=== PATIENT | male | born 1945 | race Caucasian/White ===

== ENCOUNTER 2024-01-02 15:19 | Emergency (ER) | payer OTHER ==
[~2024-01-02] VITALS: Ht 170.2 cm; Wt 72.6 kg
[2024-01-02 15:38] VITALS: BP_SYST 124; PULSE 69; RESP 16; TEMP 97.6; O2SAT 96
[2024-01-02 16:52] LABS: HEMATOCRIT 35.4 % (36-54); HEMOGLOBIN 11.4 g/dL (14.0-18.0); MEAN CORPUSCULAR HEMOGLOBIN 30 pg (27-31); MEAN CORPUSCULAR HGB CONC 32 % (32-36); MEAN CORPUSCULAR VOLUME 94 fL (79.0-98.0); PLATELET COUNT (AUTO) 133 K/uL (130-430); RED BLOOD CELL COUNT(AUTO) 3.75 MIL/uL (4.2-6.2); RED CELL DISTRIBUTION WIDTH 15.8 % (9.0-15.0)
[2024-01-02 16:55] LABS: INR 1.1 (0.80-1.20); PROTHROMBIN TIME 11.2 SECS (9.5-12.5)
[2024-01-02 16:57] LABS: ANION GAP 8 (5-15); CALCIUM 8.9 mg/dL (8.4-11.0); CARBON DIOXIDE 26 mmol/L (23-29); CHLORIDE 105 mmol/L (98-107); CREATININE 1.05 mg/dL (0.55-1.30); GLUCOSE 157 mg/dL (74-106); SODIUM SERUM 139 mmol/L (136-145); UREA NITROGEN, BLOOD 22 mg/dL (8-21)
[2024-01-02 17:10] LABS: ALANINE AMINOTRANSFERASE 8 U/L (12-78); ALBUMIN 3.2 g/dL (3.4-4.8); ASPARTATE AMINOTRANSFERASE 13 U/L (10-37); BILIRUBIN,DIRECT 0.1 mg/dL (0.0-0.3); CREATINE KINASE, TOTAL 24 U/L (39-308); SALICYLATE 2 mg/dL (3-30); TOTAL BILIRUBIN 0.3 mg/dL (0.0-1.0); TOTAL PROTEIN, SERUM 6.8 g/dL (6.4-8.3)
[2024-01-02 17:11] LABS: ACETAMINOPHEN < 1 ug/mL (1-30); ALCOHOL, BLOOD < 3 mg/dL (<10)
[2024-01-02 17:34] LABS: LYMPHOCYTES % (MANUAL) 94 % (20-46); MONOCYTES % (MANUAL) 2 % (0-11); PLATELET ESTIMATE ADEQUATE (ADEQUATE)
[2024-01-02] MEDS ORDERED: cefTRIAXone 1 GM VIAL ONE (17:34)
[2024-01-02 17:38] LABS: ACETONE, SERUM NEGATIVE (NEGATIVE)
[2024-01-02] MEDS: cefTRIAXone 1 GM in D5W 50 ML IV ONE (17:38)
[2024-01-02] MEDS ORDERED: DIVA500T PO (19:32)
[2024-01-02] MEDS ORDERED: MELA1TAB29 PO (19:32)
[2024-01-02] MEDS ORDERED: DICL100G60 TP (19:32)
[2024-01-02] MEDS ORDERED: BUSP5TAB3 PO (19:32)
[2024-01-02] MEDS ORDERED: MELA3TAB41 PO (19:32)
[2024-01-02] MEDS ORDERED: QUET25TA36 PO (19:32)
[2024-01-02] MEDS ORDERED: VITD2000 PO (19:32)
[2024-01-02] MEDS ORDERED: INSU100V7 (19:32)
[2024-01-02] MEDS ORDERED: ACAL100T (19:32)
[2024-01-02] MEDS ORDERED: SERT-131 PO (19:32)
[2024-01-02 19:56] LABS: BILIRUBIN,URINE NEGATIVE (NEGATIVE); CLARITY/URINE CLEAR (CLEAR); COLOR,URINE YELLOW (YELLOW); GLUCOSE,URINE NEGATIVE (NEGATIVE); KETONES,URINE NEGATIVE (NEGATIVE); LEUKOCYTE ESTERASE ,URINE NEGATIVE (NEGATIVE); NITRITE, URINE NEGATIVE (NEGATIVE); PROTEIN URINE NEGATIVE (NEGATIVE)
[2024-01-02 20:02] LABS: BLOOD, URINE TRACE (NEGATIVE)
[2024-01-02 20:09] LABS: BARBITURATE, URINE NEGATIVE (NEG <=200); BENZODIAZEPINE, URINE NEGATIVE (NEG <=150); CANNABINOID, URINE NEGATIVE (NEG <=50); COCAINE, URINE NEGATIVE (NEG <=150); METHAMPHETAMINES SCREEN,URINE NEGATIVE (NEG <=500); OPIATE, URINE NEGATIVE (NEG <=100); PHENCYCLIDINE SCREEN,URINE NEGATIVE (NEG <=25); URINE AMPHETAMINE NEGATIVE (NEG <=500); URINE METHADONE NEGATIVE (NEG <=200); URINE OXYCODONE SCREEN NEGATIVE (NEG <=100)
[2024-01-02 20:10] LABS: UR TRICYCLIC ANTIDEPRESSANTS NEGATIVE (NEG <=300)
[2024-01-02 20:52] LABS: BACTERIA,URINE RARE /HPF (None Seen)
[2024-01-03 01:02] VITALS: BP_SYST 118; PULSE 68; RESP 13; TEMP 97.9; O2SAT 96
== END 2024-01-03 01:02 | disposition home or self-care (01) ==
LOC: SED 15:19
DX: R41.82 Altered mental status, unspecified (principal); D72.829 Elevated white blood cell count, unspecified; A52.17 General paresis; E11.9 Type 2 diabetes mellitus without complications; Z79.4 Long term (current) use of insulin; Z85.6 Personal history of leukemia; Z88.3 Allergy status to other anti-infective agents; Z88.8 Allergy status to other drugs, medicaments and biological substances; Z79.899 Other long term (current) drug therapy
CPT/HCPCS: 99285; 96365; 70450; 71045; 85027; 80307; 80076; 80048; 82009; 82140; 82550; 85007; 85610; 85730; 87081; 84484; 36415; 93005; 83605; 82397; 81000; 81001; 87040; 81015; J0696; G0480; G0481; G0482